=== PATIENT | female | born 1945 | race Caucasian/White ===

== ENCOUNTER 2021-01-09 07:28 | Outpatient (CLI) | payer MEDICARE, OTHER | END 2021-01-09 23:59 | disposition home or self-care (01) | LOC: LAB 07:28 | PROVIDERS: ATTEND Surgery | DX: Z01.812 Encounter for preprocedural laboratory examination (principal); Z20.822 Contact with and (suspected) exposure to COVID-19; K59.00 Constipation, unspecified; K64.9 Unspecified hemorrhoids ==

== ENCOUNTER 2021-01-11 08:04 | Day surgery (SDC) | payer MEDICARE, OTHER ==
[2021-01-11] MEDS ORDERED: CEFAZOLIN 1 G VIAL IM ONE (08:05)
[2021-01-11] MEDS ORDERED: ETOMIDATE 20 MG/10 ML VIAL IV ONE (08:05)
[2021-01-11] MEDS ORDERED: DEXAMETHASONE SOD PHOSPHATE 4 MG INJ IV ONE (08:05)
[2021-01-11] MEDS ORDERED: SEVOFLURANE 250 ML BOTTLE IH ONE (08:05)
[2021-01-11] MEDS ORDERED: PROPOFOL 200 MG/20 ML BOTTLE IV ONE (08:05)
[2021-01-11] MEDS ORDERED: LIDOCAINE 1%-EPI 1:100,000 20 ML VIAL ONE (08:35)
[2021-01-11] MEDS ORDERED: BUPIVACAINE PF 0.5% 30 ML VIAL ONE (08:36)
[2021-01-11] MEDS ORDERED: BACITRACIN ZINC OINT 15 GM TUBE ONE (08:37)
[2021-01-11] MEDS ORDERED: FENTANYL CITRATE 100 MCG/2 ML AMPUL ONE (08:55)
[2021-01-11] MEDS ORDERED: MIDAZOLAM HCL 2 MG/2 ML VIAL ONE (08:56)
[2021-01-11] MEDS ORDERED: ROCURONIUM BROMIDE 50 MG/5 ML VIAL ONE (09:10)
[2021-01-11] MEDS ORDERED: GABAPENTIN 300 MG CAPSULE PO SCH (12:00)
[2021-01-11] MEDS ORDERED: ACETAMINOPHEN 325 MG TABLET PO SCH (12:00)
[2021-01-11] MEDS ORDERED: IBUPROFEN 600 MG TABLET PO SCH (12:00)
[2021-01-11] MEDS ORDERED: ACETAMINOPHEN 325 MG TABLET ONE (12:08)
== END 2021-01-11 12:50 | disposition home or self-care (01) ==
LOC: DS 08:04
PROVIDERS: ATTEND Surgery
DX: K64.8 Other hemorrhoids (principal); K59.00 Constipation, unspecified; I10 Essential (primary) hypertension; E11.9 Type 2 diabetes mellitus without complications; Z79.899 Other long term (current) drug therapy; Z98.890 Other specified postprocedural states
CPT/HCPCS: A4663; J0690; J1100; J2250; J3010; J3490; J7030